=== PATIENT | female | born 1945 | race Caucasian/White ===

== ENCOUNTER → 2018-07-04 | Outpatient (CLI) | payer MEDICARE ==
[~2018-07-04] MED LIST: REGADENOSON 0.4 MG/5 ML DISP.SYRIN. IV ONE
--- NOTE | 2018-07-08 16:12 | PCVCIMAG ---
APPROVED REPORT Imaging Protocol: Rest Tc-99m/Stress Tc-99m 1 day Study performed: 07/04/2018 09:56:30 Indication: LBBB, Near Syncope Patient Location: Out-Patient Stress Nurse: Cassandra Cesar RN OR Tech:Víctor Donovna NMLAURIB Ht: 5 ft 2 in Wt: 215 lbs BSA: 1.97 m2 HR: 62 bpm BP: 178/84 mmHg BMI: 39.3 Rhythm: SR, LBBB Medical History Medical History: Age, Hyperlipidemia, HTN, LBBB Medications: Aspirin, atorvastatin, bupropion, lisinopril Allergies: NKDA Pretest Chest Pain Characteristics: No chest pain Resting Data Rest SPECT myocardial perfusion imaging was performed in supine position 45 minutes following the intravenous injection of 16.2 mCi of Tc-99m Sestamibi. Time of rest injection: 914 Date: 07/04/2018 Administration Route: IV Administration Site: Left Hand Pharmacologic Stress Pharmacologic stress test was performed by injecting Regadenoson 0.4 mg IV push over 10-15 seconds immediately followed by the intravenous injection of 44 mCi of Tc-99m Sestamibi. Time of stress injection: 1024 Date: 07/04/2018 Administration Route: IV Administration Site: Left Hand Gated Stress SPECT was performed 45 minutes after stress injection. The images were gated to evaluate regional wall motion and calculate left ventricular ejection fraction. Stress Test Details Stress Test: Pharmacologic stress testing performed using 0.4 mg of regadenoson per 5 mL given IV over 10 seconds. HRMax Heart Rate (APMHR): 148 bpm Resting HR: 62 bpmTarget HR (85% APMHR): 125 bpm Max HR Achieved: 99 bpm % of APMHR: 66 Recovery HR: 86 bpm BP Resting BP: 178/84 mmHg Recovery BP: 133/65 mmHg ECG Resting ECG: SR with L BBB Stress ECG: SR with L BBB Arrhythmia: None Recovery ECG: SR with L BBB Clinical Reason for Termination: Completed protocol Stress Symptoms: Dyspnea Symptoms resolved with caffeine. Stress ECG Conclusion 1. Adequate response to intravenous Lexiscan 2. Inadequate heart rate for ECG diagnosis Study Data Post stress, the left ventricular ejection was 51%.. SSS: 11 SRS: 17 SDS: 0 TID = 0.89. Perfusion There is a medium area of moderately reduced uptake in the mid and apical segment of the inferior wall which is seen on the stress images as well as the resting images. This area mildly hypokinetic and is most consistent with artifact although ischemic event cannot be excluded. Nuclear Conclusion ECG Findings: non-diagnostic Clinical Findings: negative for ischemia Nuclear Findings: suggestive of artifact versus chronically ischemic or previously ischemic myocardium Exercise Capacity: not assessed Left Ventricular Function: normal left ventricular ejection fraction with mild wall motion abnormalities 1.Iintermediate risk study with the presence of photopenia and mild wall motion abnormalities in the inferoapical wall Interpreted by: Kings Turner MD Electronically Approved: 07/08/2018 16:11:58 <Conclusion> 1. Adequate response to intravenous Lexiscan 2. Inadequate heart rate for ECG diagnosis
== END | disposition home or self-care (01) ==
LOC: PCVCIMAG 11:15
PROVIDERS: ATTEND Internal Medicine
DX: I44.7 Left bundle-branch block, unspecified (principal); R55 Syncope and collapse; E78.5 Hyperlipidemia, unspecified; I10 Essential (primary) hypertension
CPT/HCPCS: 78452; 93017; A9500; J2785